=== PATIENT | female | born 1960 | race Caucasian/White ===

== ENCOUNTER → 2016-08-13 | Outpatient (CLI) | payer OTHER | END | disposition home or self-care (01) | LOC: CFH 09:15 | PROVIDERS: ATTEND Nurse Practitioner | DX: Z12.31 Encounter for screening mammogram for malignant neoplasm of breast (principal); Z13.820 Encounter for screening for osteoporosis; M85.88 Other specified disorders of bone density and structure, other site | CPT/HCPCS: 77080; G0202 ==

== ENCOUNTER → 2016-09-01 | Outpatient (CLI) | payer OTHER ==
[~2016-09-01] MED LIST: GADOBUTROL 7.5 MMOL/7.5 ML VIAL ONE
== END | disposition home or self-care (01) ==
LOC: CFH 08:20
PROVIDERS: ATTEND Nurse Practitioner
DX: G50.0 Trigeminal neuralgia (principal); J34.1 Cyst and mucocele of nose and nasal sinus
CPT/HCPCS: 70553; A9585

== ENCOUNTER 2017-02-24 14:21 | Emergency (ER) | payer OTHER ==
[~2017-02-24] VITALS: Ht 170.2 cm; Wt 75.0 kg
[2017-02-24 14:25] VITALS: BP 148/90
[2017-02-24 15:39] LABS: BASOPHILS # (AUTO) 0.04 x10^3/uL (0-0.1); BASOPHILS % (AUTO) 1 % (0-1); EOSINOPHILS # (AUTO) 0.05 x10^3/uL (0-0.4); EOSINOPHILS % (AUTO) 1 % (1-7); LYMPHOCYTES # (AUTO) 2.43 x10^3/uL (1-3.4); LYMPHOCYTES % (AUTO) 35 % (22-44); MD NO; MEAN CORPUSCULAR HEMOGLOBIN 30.7 pg (27.0-34.8); MEAN CORPUSCULAR HGB CONC 34.2 g/dL (32.4-35.8); MEAN CORPUSCULAR VOLUME 89.7 fL (80-100); MEAN PLATELET VOLUME 8.4 fL (7.4-10.4); MONOCYTES # (AUTO) 0.46 x10^3/uL (0.2-0.8); MONOCYTES % (AUTO) 7 % (2-9); NEUTROPHILS # (AUTO) 4.02 x10^3/uL (1.8-6.8); NEUTROPHILS % (AUTO) 57 % (42-75); PLATELET COUNT 315 x10^3/uL (130-400); RED BLOOD COUNT 4.58 x10^6/uL (3.82-5.3); RED CELL DISTRIBUTION WIDTH 12.5 % (9.6-15.2)
[2017-02-24 15:43] LABS: CHLORIDE 106 mmol/L (98-107)
[2017-02-24 16:09] LABS: ALBUMIN 4.1 g/dL (3.4-5.0); ANION GAP 9 mmol/L (5-15); CALCIUM 9.3 mg/dL (8.5-10.1)
[2017-02-24 16:14] LABS: ALANINE AMINOTRANSFERASE 30 U/L (12-78); ALKALINE PHOSPHATASE 72 U/L (45-117); BILIRUBIN,TOTAL 0.5 mg/dL (0.2-1.0); CREATININE 0.79 mg/dL (0.55-1.02); TOTAL PROTEIN 7.3 g/dL (6.4-8.2); TROPONIN I < 0.015 ng/mL (0.000-0.045)
== END 2017-02-24 17:24 | disposition home or self-care (01) ==
LOC: ED 17:10
DX: R07.89 Other chest pain (principal); I10 Essential (primary) hypertension; F17.200 Nicotine dependence, unspecified, uncomplicated
CPT/HCPCS: 36415; 71045; 80053; 84484; 85025; 93005; 99285

== ENCOUNTER → 2017-03-11 | Outpatient (CLI) | payer OTHER | END | disposition home or self-care (01) | LOC: CFH 08:02 | PROVIDERS: ATTEND Nurse Practitioner | DX: Z12.2 Encounter for screening for malignant neoplasm of respiratory organs (principal); J84.10 Pulmonary fibrosis, unspecified; I77.810 Thoracic aortic ectasia; R10.2 Pelvic and perineal pain; F17.210 Nicotine dependence, cigarettes, uncomplicated | CPT/HCPCS: 76856; G0297 ==

== ENCOUNTER → 2018-02-01 | Outpatient (CLI) | payer OTHER | END | disposition home or self-care (01) | LOC: CFH 13:25 | PROVIDERS: ATTEND Nurse Practitioner | DX: Z12.31 Encounter for screening mammogram for malignant neoplasm of breast (principal) | CPT/HCPCS: 77067 ==

== ENCOUNTER → 2018-03-08 | Outpatient (CLI) | payer OTHER | END | disposition home or self-care (01) | LOC: CFH 13:44 | PROVIDERS: ATTEND Nurse Practitioner | DX: J84.10 Pulmonary fibrosis, unspecified (principal); N64.89 Other specified disorders of breast; Z87.891 Personal history of nicotine dependence | CPT/HCPCS: 77065; G0297 ==

== ENCOUNTER 2018-06-14 09:07 | Emergency (ER) | payer OTHER ==
[~2018-06-14] VITALS: Ht 170.2 cm; Wt 78.1 kg
[2018-06-14 09:11] VITALS: BP 136/88
--- NOTE | 2018-06-14 10:02 | NUR ---
PT AMBULATORY WITH STEADY GAIT TO IMAGING
--- NOTE | 2018-06-14 10:39 | NUR ---
Patient/Caregiver given discharge instructions and they have confirmed that they understand the instructions. Patient ambulatory with steady gait. PT LEFT WITH ALL PERSONAL BELONGINGS.
== END 2018-06-14 10:45 | disposition home or self-care (01) ==
LOC: ED 10:31
DX: M94.0 Chondrocostal junction syndrome [Tietze] (principal); B34.9 Viral infection, unspecified; I10 Essential (primary) hypertension; Z87.891 Personal history of nicotine dependence
CPT/HCPCS: 71046; 99283

== ENCOUNTER 2018-07-29 09:00 | Outpatient (CLI) | payer OTHER ==
[2018-07-29] MEDS ORDERED: OMNIPAQUE 350 MG/ML, 100ML BOTTLE ONE (15:30)
== END 2018-07-29 23:59 | disposition home or self-care (01) ==
LOC: CFH 09:00
PROVIDERS: ATTEND Thoracic Surgery (Cardiothoracic Vascular Surgery)
DX: R91.8 Other nonspecific abnormal finding of lung field (principal); I71.2 Thoracic aortic aneurysm, without rupture
CPT/HCPCS: 71275; Q9967

== ENCOUNTER → 2018-08-25 | Outpatient (CLI) | payer OTHER | END | disposition home or self-care (01) | LOC: CFH 07:00 | PROVIDERS: ATTEND Nurse Practitioner Family | DX: E78.5 Hyperlipidemia, unspecified (principal); R74.8 Abnormal levels of other serum enzymes | CPT/HCPCS: 76705 ==

== ENCOUNTER → 2018-12-27 | Outpatient (CLI) | payer OTHER ==
[~2018-12-27] MED LIST changes: -GADOBUTROL 7.5 MMOL/7.5 ML VIAL ONE; +OMNIPAQUE 350 MG/ML, 75ML BOTTLE ONE
== END | disposition home or self-care (01) ==
LOC: CFH 08:25
PROVIDERS: ATTEND Internal Medicine Critical Care Medicine
DX: J43.2 Centrilobular emphysema (principal); R91.1 Solitary pulmonary nodule; I71.2 Thoracic aortic aneurysm, without rupture; F32.9 Major depressive disorder, single episode, unspecified; M85.88 Other specified disorders of bone density and structure, other site; E07.9 Disorder of thyroid, unspecified; Z87.891 Personal history of nicotine dependence
CPT/HCPCS: 71260; Q9967

== ENCOUNTER → 2019-02-02 | Outpatient (CLI) | payer OTHER | END | disposition home or self-care (01) | LOC: PETCFH 09:28 | PROVIDERS: ATTEND Internal Medicine | DX: R91.1 Solitary pulmonary nodule (principal); Z87.891 Personal history of nicotine dependence | CPT/HCPCS: 78815; A9552 ==

== ENCOUNTER 2019-03-21 06:57 | Outpatient (CLI) | payer OTHER | END 2019-03-21 23:59 | disposition home or self-care (01) | LOC: CFH 06:57 | PROVIDERS: ATTEND Nurse Practitioner | DX: Z12.31 Encounter for screening mammogram for malignant neoplasm of breast (principal); Z13.820 Encounter for screening for osteoporosis; M85.88 Other specified disorders of bone density and structure, other site | CPT/HCPCS: 77063; 77067; 77080 ==

== ENCOUNTER 2020-08-14 09:43 | Outpatient (CLI) | payer OTHER | END 2020-08-14 23:59 | disposition home or self-care (01) | LOC: CFH 09:43 | PROVIDERS: ATTEND Nurse Practitioner | DX: Z12.31 Encounter for screening mammogram for malignant neoplasm of breast (principal); Z12.2 Encounter for screening for malignant neoplasm of respiratory organs; M85.88 Other specified disorders of bone density and structure, other site; R91.1 Solitary pulmonary nodule; Z87.891 Personal history of nicotine dependence | CPT/HCPCS: 71271; 77063; 77067; 77080 ==